=== PATIENT | male | born 1975 | race African-American/Black ===

== ENCOUNTER 2016-06-26 06:36 | Emergency (ER) | payer MEDICAID ==
[~2016-06-26] VITALS: Ht 172.7 cm; Wt 81.0 kg
[2016-06-26] MEDS ORDERED: HYDROCODONE/ACETAMINOPHEN 5/325MG TABLET PO ONE (09:45)
[2016-06-26] MEDS ORDERED: CEFTRIAXONE SODIUM 250 MG/VIAL IM ONE (11:15)
[2016-06-26 12:08] LABS: CLARITY URINE CLEAR (CLEAR); COLOR URINE YELLOW (YELLOW); GLUCOSE URINE NEGATIVE (NEGATIVE); KETONES URINE NEGATIVE (NEGATIVE); LEUKOCYTE ESTERASE URINE NEGATIVE (NEGATIVE); NITRITE URINE NEGATIVE (NEGATIVE); OCCULT BLOOD URINE 3+ (NEGATIVE); PH URINE 5.5 (4.5-8.0); PROTEIN URINE 3+ (NEGATIVE); SPECIFIC GRAVITY URINE 1.017 (1.005-1.030); UROBILINOGEN URINE 0.2 E.U./dL (0.2-1.0)
[2016-06-26 12:25] LABS: SQUAMOUS EPITHELIAL CELL URINE RARE /lpf (RARE/1+)
[2016-06-26 12:26] LABS: BACTERIA URINE TRACE; RBC URINE 0-2 /hpf (0-2); WBC URINE 0-2 /hpf (0-2); YEAST URINE 1+
[2016-06-26] MEDS ORDERED: AZITHROMYCIN 250 MG TABLET PO ONE (12:45)
[2016-06-26 12:55] VITALS: BP 151/102
== END 2016-06-26 12:56 | disposition home or self-care (01) ==
LOC: ER 07:42
DX: N45.3 Epididymo-orchitis (principal); N43.3 Hydrocele, unspecified; R31.9 Hematuria, unspecified; I10 Essential (primary) hypertension; F17.210 Nicotine dependence, cigarettes, uncomplicated; F12.10 Cannabis abuse, uncomplicated
CPT/HCPCS: 76870; 81001; 93976; 96372; 99285; J0696; Z7610

== ENCOUNTER 2016-07-22 07:31 | Emergency (ER) | payer MEDICAID ==
[~2016-07-22] VITALS: Ht 175.3 cm; Wt 80.0 kg
[2016-07-22] MEDS ORDERED: SODIUM CHLORIDE 0.9% 1,000 ML IV ONE (08:56)
[2016-07-22] MEDS ORDERED: KETOROLAC 30MG/ML VIAL IV STA (08:56)
[2016-07-22 09:13] LABS: BASOPHILS % 0.8 % (0.0-2.0); EOSINOPHILS % 3.9 % (0.0-5.0); HEMATOCRIT. 40.7 % (42.0-52.0); HEMOGLOBIN. 13.9 g/dL (14.0-18.0); LYMPHOCYTES % 41.2 % (20.0-50.0); MEAN CORPUSCULAR HEMOGLOBIN 31.4 pg (28.0-32.0); MEAN CORPUSCULAR HGB CONC 34.2 g/dL (31.0-37.0); MEAN CORPUSCULAR VOLUME 91.9 fL (80.0-94.0); MEAN PLATELET VOLUME 6.8 fl (7.4-10.4); MONOCYTES % 10.1 % (2.0-8.0); PLATELET 193 x1000/uL (130-400); RED BLOOD CELL COUNT 4.43 mill/uL (4.7-6.1); RED CELL DISTRIBUTION WIDTH 13.9 % (11.6-14.6); WHITE BLOOD COUNT 4.8 x1000/uL (4.5-11.0)
[2016-07-22 09:49] LABS: CLARITY URINE CLEAR (CLEAR); COLOR URINE YELLOW (YELLOW); GLUCOSE URINE NEGATIVE (NEGATIVE); KETONES URINE NEGATIVE (NEGATIVE); LEUKOCYTE ESTERASE URINE NEGATIVE (NEGATIVE); NITRITE URINE NEGATIVE (NEGATIVE); OCCULT BLOOD URINE 2+ (NEGATIVE); PROTEIN URINE 2+ (NEGATIVE); UROBILINOGEN URINE 0.2 E.U./dL (0.2-1.0)
[2016-07-22 09:53] LABS: BACTERIA URINE NONE SEEN; CALCIUM PHOSPHATE CRYSTALS UR NONE SEEN /lpf; SQUAMOUS EPITHELIAL CELL URINE NONE SEEN /lpf (RARE/1+); WAXY CASTS URINE NONE SEEN /lpf; WBC URINE NONE SEEN /hpf (0-2); YEAST URINE NONE SEEN
[2016-07-22 11:19] VITALS: BP 139/79
== END 2016-07-22 11:21 | disposition home or self-care (01) ==
LOC: ER 08:34
DX: N45.3 Epididymo-orchitis (principal); F17.200 Nicotine dependence, unspecified, uncomplicated; F12.10 Cannabis abuse, uncomplicated
CPT/HCPCS: 36415; 76870; 81001; 85025; 93976; 96361; 96374; 99285; J1885; J7030

== ENCOUNTER 2016-09-11 00:21 | Emergency (ER) | payer MEDICAID ==
[~2016-09-11] VITALS: Ht 172.7 cm; Wt 79.0 kg
[2016-09-11] MEDS ORDERED: CEFTRIAXONE SODIUM 250 MG/VIAL IM ONE (07:15)
[2016-09-11] MEDS ORDERED: AZITHROMYCIN 500 MG TABLET PO ONE (07:15)
[2016-09-11] MEDS ORDERED: LIDOCAINE HCL 1% 20ML VIAL (Pyxis) INJ MC ONE (08:00)
[2016-09-11 09:53] LABS: KETONES URINE NEGATIVE (NEGATIVE); LEUKOCYTE ESTERASE URINE NEGATIVE (NEGATIVE); NITRITE URINE NEGATIVE (NEGATIVE); OCCULT BLOOD URINE 2+ (NEGATIVE); PH URINE 5.5 (4.5-8.0); PROTEIN URINE 3+ (NEGATIVE); SPECIFIC GRAVITY URINE 1.024 (1.005-1.030); UROBILINOGEN URINE 0.2 E.U./dL (0.2-1.0)
[2016-09-11 09:55] LABS: CLARITY URINE CLEAR (CLEAR); COLOR URINE YELLOW (YELLOW)
[2016-09-11] MEDS ORDERED: CLONIDINE 0.1MG TABLET PO ONE (11:00)
[2016-09-11 11:20] VITALS: BP 167/105
[2016-09-14 15:09] LABS: CHLAMYDIA TRACHOMATIS NAA Negative (Negative); NEISSERIA GONORRHOEAE NAA Negative (Negative)
== END 2016-09-11 11:36 | disposition home or self-care (01) ==
LOC: ER 07:31
DX: A64 Unspecified sexually transmitted disease (principal); F17.200 Nicotine dependence, unspecified, uncomplicated; F12.10 Cannabis abuse, uncomplicated
CPT/HCPCS: 81001; 87491; 87591; 96372; 99284; J0696; J3490

== ENCOUNTER 2016-10-13 06:51 | Emergency (ER) | payer MEDICAID ==
[~2016-10-13] VITALS: Ht 175.3 cm; Wt 79.5 kg
[2016-10-13] MEDS ORDERED: KETOROLAC 60MG/2ML VIAL IM ONE (07:30)
[2016-10-13 08:56] LABS: GLUCOSE URINE NEGATIVE (NEGATIVE); KETONES URINE NEGATIVE (NEGATIVE); LEUKOCYTE ESTERASE URINE NEGATIVE (NEGATIVE); NITRITE URINE NEGATIVE (NEGATIVE); OCCULT BLOOD URINE 2+ (NEGATIVE); PROTEIN URINE 2+ (NEGATIVE); SPECIFIC GRAVITY URINE 1.006 (1.005-1.030); UROBILINOGEN URINE 0.2 E.U./dL (0.2-1.0)
[2016-10-13 09:02] LABS: CLARITY URINE CLEAR (CLEAR); COLOR URINE YELLOW (YELLOW)
[2016-10-13 09:14] LABS: *AMPHETAMINES SCREEN URINE PRESUMTIVE POSITIVE (NEGATIVE); *BARBITURATES SCREEN URINE NEGATIVE (NEGATIVE); *BENZODIAZEPINES SCREEN URINE NEGATIVE (NEGATIVE); *COCAINE SCREEN URINE NEGATIVE (NEGATIVE); CANNABINOID URINE SCREEN PRESUMTIVE POSITIVE (NEGATIVE); METHADONE URINE SCREEN NEGATIVE (NEGATIVE); OPIATES URINE SCREEN NEGATIVE (NEGATIVE); PHENCYCLIDINE URINE SCREEN NEGATIVE (NEGATIVE)
[2016-10-13] MEDS ORDERED: AZITHROMYCIN 500 MG TABLET PO ONE (10:45)
[2016-10-13] MEDS ORDERED: CEFTRIAXONE SODIUM 250 MG/VIAL IM ONE (10:45)
[2016-10-13] MEDS ORDERED: STERILE WATER FOR INJECTION 10ML VIAL ONE (11:30)
[2016-10-13 11:40] VITALS: BP 159/108
[2016-10-16 04:16] LABS: CHLAMYDIA TRACHOMATIS NAA Negative (Negative); NEISSERIA GONORRHOEAE NAA Negative (Negative)
== END 2016-10-13 12:11 | disposition home or self-care (01) ==
LOC: ER 07:50
DX: N43.3 Hydrocele, unspecified (principal); I10 Essential (primary) hypertension; F12.10 Cannabis abuse, uncomplicated; F15.10 Other stimulant abuse, uncomplicated; F17.200 Nicotine dependence, unspecified, uncomplicated
CPT/HCPCS: 71010; 74176; 76870; 80305; 81001; 87086; 87491; 87591; 93976; 96372; 99285; A4216; J0696; J1885

== ENCOUNTER 2019-03-08 23:53 | Emergency (ER) | payer MEDICAID ==
[~2019-03-08] VITALS: Ht 172.7 cm; Wt 78.0 kg
[2019-03-09 06:00] VITALS: BP 143/94
== END 2019-03-09 06:36 | disposition home or self-care (01) ==
LOC: ER 23:53
DX: H10.33 Unspecified acute conjunctivitis, bilateral (principal); J06.9 Acute upper respiratory infection, unspecified; F12.10 Cannabis abuse, uncomplicated
CPT/HCPCS: 99283

== ENCOUNTER 2020-06-14 00:37 | Emergency (ER) | payer MEDICAID, OTHER ==
[~2020-06-14] VITALS: Ht 175.3 cm; Wt 78.0 kg
[2020-06-14] MEDS ORDERED: IBUPROFEN 600MG TABLET PO ONE (01:15)
[2020-06-14] MEDS ORDERED: IBUP-2029 MT (01:21)
[2020-06-14 01:38] VITALS: BP 144/100
== END 2020-06-14 02:38 | disposition home or self-care (01) ==
LOC: ER 00:37
DX: M79.89 Other specified soft tissue disorders (principal); M79.672 Pain in left foot; R03.0 Elevated blood-pressure reading, without diagnosis of hypertension; F14.10 Cocaine abuse, uncomplicated; F12.90 Cannabis use, unspecified, uncomplicated
CPT/HCPCS: 99282

== ENCOUNTER 2021-12-12 09:39 | Emergency (ER) | payer MEDICAID, OTHER ==
[~2021-12-12] VITALS: Ht 172.7 cm; Wt 77.0 kg
[~2021-12-12 09:39] MED LIST: IBUP-2029 MT
[2021-12-12] MEDS ORDERED: KETOROLAC 30MG/ML VIAL IM ONE (13:15)
[2021-12-12 13:17] VITALS: BP 193/121
[2021-12-12] MEDS ORDERED: NAP5EC MT (14:24)
== END 2021-12-12 14:37 | disposition home or self-care (01) ==
LOC: ER 09:39
DX: M25.562 Pain in left knee (principal); G89.11 Acute pain due to trauma; V43.51XA Car driver injured in collision with sport utility vehicle in traffic accident, initial encounter; Y93.89 Activity, other specified; Y92.488 Other paved roadways as the place of occurrence of the external cause
CPT/HCPCS: 73562; 96372; 99283; J1885

== ENCOUNTER 2023-06-22 14:14 | Emergency (ER) | payer OTHER ==
[~2023-06-22] VITALS: Ht 172.7 cm; Wt 77.0 kg
[~2023-06-22 14:14] MED LIST changes: +NAP5EC MT
[2023-06-22 14:21] VITALS: O2SAT 100
[2023-06-22] MEDS ORDERED: TC1U15 TP (15:37)
[2023-06-22] MEDS ORDERED: DIPH25CA83 MT (15:37)
[2023-06-22] MEDS ORDERED: P50 MT (15:37)
[2023-06-22 16:12] VITALS: BP 128/78; PULSE 72; RESP 16; TEMP 98.2
== END 2023-06-22 16:13 | disposition home or self-care (01) ==
LOC: ER 14:57
DX: R21 Rash and other nonspecific skin eruption (principal); F14.10 Cocaine abuse, uncomplicated; F12.10 Cannabis abuse, uncomplicated
CPT/HCPCS: 99283